=== PATIENT | female | born 1950 | race Caucasian/White ===

== ENCOUNTER 2019-10-01 13:48 | Outpatient (CLI) | payer MEDICARE, SELFPAY ==
--- NOTE | ~2019-10-01 | DEXA_ITS ---
Bone Density Report Name: Sheela Mcqueen Age: 69 Sex: Female Ethnicity: White Date of : 1950 Indication: postmenopausal; height loss; hysterectomy; Referring Provider: SHEA DUDLEY Study: Bone densitometry was performed. Exam Date: October 01, 2019 Accession number: [id number] Bone Density: Region BMD T-score Z-score Classification AP Spine (L1-L4) 0.972 -0.7 1.5 Normal Femoral Neck (Left) 0.807 -0.4 1.4 Normal Total Hip (Left) 0.890 -0.4 1.1 Normal Total Hip Bilateral Avg 0.865 -0.6 0.9 Normal Femoral Neck (Right) 0.759 -0.8 1.0 Normal Total Hip (Right) 0.840 -0.8 0.7 Normal World Health Organization criteria for BMD impression classify patients as: Normal (T-score at or above -1.0), Osteopenia (T-score between -1.0 and -2.5), or Osteoporosis (T-score at or below -2.5). 10-year Fracture Risk: FRAX not reported because: All T-scores for Spine Total, Hip Total, Femoral Neck at or above -1.0 Clinical Information Provided by Patient: Has used the following medications: Vitamin D Has the following medical conditions: Hysterectomy Patient maximum height was 63 Menopause Age: 49 Does not regularly consume dairy products Onset of menses at age 12 Number of children 1 Impression: The patient has normal bone mass. Discussion: BONE DENSITY IS ABOVE THE MINIMUM DESIRABLE LEVEL AT ALL SKELETAL SITES TESTED. This patient?s bone mineral density is above the minimum desirable level (T-score -1.0 or better) at all sites measured. The patient should follow a healthful lifestyle (good nutrition with adequate calcium and vitamin D, and appropriate weight-bearing exercise). Follow-Up: Consider repeating this study in 5 years or sooner if there is some new clinical indication. Reported by: PASCUAL on 10/01/2019 2:20:00 PM. Reviewed, dictated and finalized at location [facility]
--- NOTE | ~2019-10-01 | MM_ITS ---
EXAMINATION: MM screening [facility] BI w linda HISTORY: Screening mammogram TECHNIQUE: Craniocaudal and mediolateral oblique 3-D tomosynthesis images were obtained and synthetic 2-D images were generated. CAD analysis was submitted and interpreted. COMPARISON: 08/07/2017, 07/25/2016, 07/08/2015 bilateral digital screening mammogram examinations BREAST PARENCHYMAL COMPOSITION: There are scattered areas of fibroglandular density. FINDINGS: There is a 3 x 4 mm circumscribed reniform opacity in the outer mid to lateral left breast (MLO Tomosynthesis image ; CC tomosynthesis ). This is likely a benign intramammary lymph node. There is no evidence of suspicious mass, calcification, or architectural distortion to suggest malign stefan in either breast. There has been no suspicious interval change. IMPRESSION: 1. No mammographic evidence of malignancy. 2. Recommend routine screening mammography in one year. BI-RADS Category 2: Benign finding(s). Reviewed, dictated and finalized at location A.
== END 2019-10-01 13:49 | disposition home or self-care (01) ==
PROVIDERS: PCP Internal Medicine; Visit Provider Obstetrics & Gynecology
DX: Z12.31 Encounter for screening mammogram for malignant neoplasm of breast (principal); Z78.0 Asymptomatic menopausal state
CPT/HCPCS: 77063; 77067; 77080

== ENCOUNTER 2021-03-02 00:28 | Day surgery (SDC) | payer MEDICARE, SELFPAY ==
[2021-02-10 14:12] VITALS: BMI 26.2
[2021-03-02 07:39] VITALS: BP 118/71; PULSE 89; RESP 16; TEMP 37.3; O2SAT 97
[2021-03-02] MEDS: LACTATED RINGERS 1,000 ML 150 ML IV CONT (07:41)
--- NOTE | 2021-03-02 08:46 | WPDANESEPPF ---
Anes - Initial Pre Proc Eval Procedure: Operation Date: 03/02/21 09:00 Proposed Procedures p Esophagogastroduodenoscopy - Mello Mcfarland MD Date/Time: 03/02/21 08:46 Surgeon: Mello Mcfarland MD Pre Op Diagnosis: GERD Patient Data Age: 70 Gender: F Height: 1.57 m Weight: 64.8 kg Last Vital Signs Temp 99.1 F 03/02/21 07:39 Pulse 89 03/02/21 07:39 Resp 16 03/02/21 07:39 BP 118/71 03/02/21 07:39 Pulse Ox 97 03/02/21 07:39 Allergies Allergy/AdvReac Type Severity Reaction Status Date / Time No Known Allergies Allergy Verified 03/02/21 07:38 Home Medications Medication Instructions Recorded Confirmed Type ergocalciferol (vitamin D2) 50 mcg 50 mcg PO DAILY 11/04/19 03/02/21 History (2,000 unit) capsule melatonin 10 mg capsule 10 mg PO .hs PRN cap 11/04/19 03/02/21 History felodipine 5 mg tablet,extended 5 mg PO DAILY #90 tablet 09/12/20 03/02/21 Rx release 24 hr atorvastatin 20 mg tablet 20 mg PO DAILY #90 tablet 10/06/20 03/02/21 Rx omeprazole 40 mg capsule,delayed 40 mg PO DAILY #90 cap 12/19/20 03/02/21 Rx release valsartan 320 1 tablet PO DAILY #90 tablet 12/19/20 03/02/21 Rx mg-hydrochlorothiazide 12.5 mg tablet ascorbic acid (vitamin C) 4,000 mg PO DAILY 02/10/21 03/02/21 History multivitamin with iron [Hair 4 tablet PO DAILY 02/10/21 03/02/21 History Vitamins] Patient hx anesthesia problems: none Family hx anesthesia problems: none Results Review: All pre-operative results and documents have been reviewed as part of the pre-operative evaluation. REPLACED BY [facility] Past Medical History Medical History (Updated 01/27/21 @ 11:16 by Mello Mcfarland MD) Esophageal ring Family history of malignant neoplasm of colon in mother Surgical History Surgical History H/O foot surgery Hx of hysterectomy Hx of LASIK Hx of tubal ligation Family History Family History Mother Patient's mother is Carcinoma of colon Family history of malignant neoplasm of cervix Father Patient's father is Family history of hypercholesterolemia Hypertension Family history of heart disease in male family member before age 55 Sibling Family history of malignant neoplasm of bone Grandparent Family history of malignant neoplasm of breast Social History Social History Smoking status: Never smoker Second hand tobacco smoke exposure: No Alcohol intake: current Alcohol use details: 2 drinks per year Substance use: never Living arrangements: with family Spiritual care concerns: No Anes - Eval Final PreProcedure Day of Procedure 03/02/21 08:46 Patient weight: normal Heart: regular rate and rhythm Lungs: clear to auscultation Airway: Mallampati scale class II Neurological: alert and oriented Last oral intake: >/= 8 hours ASA classification: II Emergent: no Anesthetic plan: proceed Anesthesia type and monitoring: general GIVS and standard monitoring Results Review: All pre-operative results and documents have been reviewed as part of the pre-operative evaluation. Informed Consent: The patient's anesthetic plan and its attendant risks and benefits were discussed with the patient/family/POA. Questions were solicited and answers provided to the satisfaction of the patient/family/POA.
--- NOTE | 2021-03-02 08:50 | PM.HPGS ---
History of Present Illness History of Present Illness Consent: Risks, benefits, and alternatives have been discussed and questions answered. Patient agrees to proceed with procedure. Chief complaint: GERD Narrative: Sheela Mcqueen is a 70 year old female with intermittent gerd on omeprazole, she had EGD 2018 with duodenal ulcer, 2 cm hiatal hernia and subtle esophageal ring dilated with TTS balloon up to 18mm, repeat EGD documented healed ulcer. Review of Systems Constitutional: Constitutional: Denies headache(s) and Denies weakness Eyes: Eyes: Denies blurry vision ENT: Reports Normal hearing present, Denies headache(s) and Denies neck pain Cardiovascular: Cardiovascular: Denies chest pain and Denies dyspnea Respiratory: Respiratory: Denies dyspnea Gastrointestinal: Gastrointestinal: Reports no additional gastrointestinal complaints Genitourinary: Genitourinary: Denies dysuria Musculoskeletal: Musculoskeletal: Denies neck pain Integumentary/Breasts: Skin/Breast: Denies dry skin Neurologic: Reports Normal hearing present, Denies headache(s) and Denies weakness Psychiatric: Psychiatric: Denies anxiety Endocrine: Endocrine: Denies change in body appearance Hematologic/Lymphatic: Hematologic/Lymphatic: Denies easy bleeding Allergic/Immunologic: Allergic/Immunologic: Denies urticaria PMFSH Past Medical History Medical History (Updated 01/27/21 @ 11:16 by Mello Mcfarland MD) Esophageal ring Family history of malignant neoplasm of colon in mother Surgical History Surgical History H/O foot surgery Hx of hysterectomy Hx of LASIK Hx of tubal ligation Family History Family History Mother Patient's mother is Carcinoma of colon Family history of malignant neoplasm of cervix Father Patient's father is Family history of hypercholesterolemia Hypertension Family history of heart disease in male family member before age 55 Sibling Family history of malignant neoplasm of bone Grandparent Family history of malignant neoplasm of breast Social History Social History Smoking status: Never smoker Second hand tobacco smoke exposure: No Alcohol intake: current Alcohol use details: 2 drinks per year Substance use: never Living arrangements: with family Spiritual care concerns: No Meds Home Medications and Allergies Home Medications Medication Instructions Recorded Confirmed Type ergocalciferol (vitamin D2) 50 mcg 50 mcg PO DAILY 11/04/19 03/02/21 History (2,000 unit) capsule melatonin 10 mg capsule 10 mg PO .hs PRN cap 11/04/19 03/02/21 History felodipine 5 mg tablet,extended 5 mg PO DAILY #90 tablet 09/12/20 03/02/21 Rx release 24 hr atorvastatin 20 mg tablet 20 mg PO DAILY #90 tablet 10/06/20 03/02/21 Rx omeprazole 40 mg capsule,delayed 40 mg PO DAILY #90 cap 12/19/20 03/02/21 Rx release valsartan 320 1 tablet PO DAILY #90 tablet 12/19/20 03/02/21 Rx mg-hydrochlorothiazide 12.5 mg tablet ascorbic acid (vitamin C) 4,000 mg PO DAILY 02/10/21 03/02/21 History multivitamin with iron [Hair 4 tablet PO DAILY 02/10/21 03/02/21 History Vitamins] Allergies Allergy/AdvReac Type Severity Reaction Status Date / Time No Known Allergies Allergy Verified 03/02/21 07:38 Vital Signs Vital Signs - 24 hr 03/02/21 07:39 Temperature 99.1 F Pulse Rate 89 Respiratory Rate 16 Blood Pressure 118/71 Pulse Oximetry 97 Exam Const: General: comfortable and no acute distress HENMT: General nose exam: Normal nares present Eyes: General: appearance normal, both eyes and all related structures Neck: Neck: no JVD Resp: Auscultation: clear to auscultation bilaterally Cardio: Rate: regular rate Rhythm: regular rhythm GI: Inspection: non-di
[2021-03-02 09:04] VITALS: BP 103/66; PULSE 83; RESP 18; O2SAT 97
[2021-03-02 09:14] VITALS: BP 103/64; PULSE 79; RESP 15; O2SAT 98
[2021-03-02 09:24] VITALS: BP 110/65; PULSE 77; RESP 15; O2SAT 100
== END 2021-03-02 09:37 | disposition home or self-care (01) ==
PROVIDERS: PCP Internal Medicine; Visit Provider Internal Medicine Gastroenterology
PROC: 0DJ08ZZ Inspection of Upper Intestinal Tract, Via Natural or Artificial Opening Endoscopic (ICD-10-PCS; CPT 43235; principal; 2021-03-02 09:00)
DX: K21.00 Gastro-esophageal reflux disease with esophagitis, without bleeding (principal)
CPT/HCPCS: 43239; 88305; J2704; J7120

== ENCOUNTER 2021-07-06 07:41 | Outpatient (CLI) | payer MEDICARE, SELFPAY ==
--- NOTE | ~2021-07-06 | US_ITS ---
EXAMINATION: US abdomen complete EXAM DATE: 07/06/2021 08:19 INDICATION: R10.9 - Unspecified abdominal pain TECHNIQUE: Multiple grayscale and Doppler images of the complete abdomen were obtained (by a technolo gist who performed the scan) and subsequently reviewed. There is no prior study for comparison. FINDINGS: The abdominal aorta is normal in caliber. Visualized portion IVC is patent. The pancreatic head a nd body are normal in appearance. The pancreatic tail is not visualized. The liver has normal echogenicity and contour. There are no focal liver lesions identified. There is no evidence of intrahepatic biliary duct dilation. Portal venous flow was seen in the hepatopedal , normal direction and has normal Doppler waveform. Common bile duct measures 2 mm, which is normal. The gallbladder wall is normal in thickness, with ex pected amount of distention. No sonographic evidence of pericholecystic fluid. There is no cholelit hiases. Technologist performing exam reports patient did not demonstrate sonographic Archer's sign. Please note that this sign is less reliable in patients who have received pain medication. Right kidney: There is normal contour and echogenicity. It measures 8.7 x 3.9 x 6.3 centimeters. T here are no focal renal lesions identified. There is no hydronephrosis. Left kidney: There is normal contour and echogenicity. It measures 8.9 x 5.0 x 5.1 centimeters. Th ere are no focal renal lesions identified. There is no hydronephrosis. The spleen measures 8.1 centimeters and is morphologically normal. IMPRESSION: 1. Unremarkable complete abdominal ultrasound exam. Reviewed, dictated and finalized at location A. NICAL ADMINISTRATOR
== END 2021-07-06 07:42 | disposition home or self-care (01) ==
LOC: ANHIMG 07:43
PROVIDERS: PCP Internal Medicine; Visit Provider Nurse Practitioner Family
DX: R10.9 Unspecified abdominal pain (principal)
CPT/HCPCS: 76700